=== PATIENT | male | born 2000 | race Caucasian/White ===

== ENCOUNTER → 2024-06-21 10:30 | Outpatient (REF) | payer BC, SELFPAY | LOC: HWRAD 10:30 | DX: N50.819 Testicular pain, unspecified (principal) | CPT/HCPCS: 76870; 93976 ==

== ENCOUNTER → 2024-08-02 11:26 | Outpatient (REF) | payer OTHER, SELFPAY ==
[2024-08-02 20:06] LABS: Hepatitis B Surface Antibody Positive
== END ==
LOC: OHS 11:26
PROVIDERS: ATTENDING PHYSICIAN Nurse Practitioner Family
DX: Z23 Encounter for immunization (principal)
CPT/HCPCS: 36415; 86480; 86706